=== PATIENT | male | born 1980 | race Caucasian/White ===

== ENCOUNTER 2022-11-18 10:42 | Emergency (ER) | payer OTHER, SELFPAY ==
[2022-11-18 11:14] VITALS: BP 128/75; PULSE 103; RESP 20; TEMP 38.6; O2SAT 97; BMI 27.1
--- NOTE | 2022-11-18 11:49 | CT_ITS ---
WS: [id number] CT FACIAL BONES TECHNIQUE: Contrast-enhanced facial bones with coronal and sagittal reformatted images. CLINICAL INFORMATION: L jaw swelling COMPARISON: None. DLP: 971.[address] scans at [facility] use at least one of these dose optimization techniques: automated e xposure control; mA and/or kV adjustment per patient size (includes targeted exams where dose is matc hed to clinical indication); or iterative reconstruction. FINDINGS: Inflammatory stranding with edema involving the LEFT mandibular soft tissues compatible with cellulit is. Periapical lucency involving the LEFT posterior mandibular molars. Small pocket of air associated low-attenuation fluid about the LEFT mandible suspicious for phlegmon or developing abscess. This me asures approximately 2.2 x 1.0 cm along the lingual cortex. Inflammatory stranding and edema extendin g into the LEFT submandibular space. Thickening of the platysma. Reactive LEFT cervical lymph nodes. Edema extends into the LEFT parapharyngeal space and LEFT pharyngeal soft tissues. Partial effacement of the vallecula and LEFT piriform sinus. Visualized airway appears patent. Maxillary sinusitis RIGHT greater than LEFT. Visualized mastoid air cells well aerated. Roots of tania ral LEFT maxillary molars extend into the LEFT maxillary sinus with periapical cysts. CT/CT facial bones w con [id number] IMPRESSION: 1. Cellulitis involving the LEFT superficial and deep soft tissues with absces s about the lingual cortex LEFT mandible. 2. Infection extends into the LEFT submandibular space with edema in the LEFT vallecula and pharyngeal soft tissues. 3. Associated air with low-attenuation fluid about the LEFT mandible suspiciou s for phlegmon/abscess measuring 2.2 x 1.0 cm along the lingual cortex. Odontog enic origin suspected. 4. Reactive LEFT cervical lymph nodes. 5. RIGHT greater than LEFT maxillary sinusitis. Notified Saige Davies PA-C at 11/18/2022 1:16 PM.
--- NOTE | 2022-11-18 11:51 | W.ED.DENTAL ---
Documented by User: Saieg Davies PA-C 11/18/22 16:39 HPI - Dental/Oral General: Chief complaint: Dental/Oral Stated complaint: tooth abscess Time Seen by Provider: 11/18/22 11:38 Source: patient and family Mode of arrival: wheelchair Limitations: no limitations History of Present Illness: 42-year-old male presents to the ER with significant facial swelling and fever for the last 24 hours. Patient reports he has a tooth with a cavity in the left back however did not start bothering him until yesterday. Patient reports he woke up this morning with significant swelling in the left side of his jaw. Patient is unable to open his mouth fully and has significant swelling under his tongue. Patient reports his pain is a 10 out of 10 at this time. He is only taking [id number] medications for the pain at this time. Patient reports he does not have a dentist right now due to no insurance. Was unaware he had a fever however has reported chills. Patient reports no appetite due to the pain. Review of Systems General: Reports: 10 or more systems reviewed and unremarkable except in HPI and below Physical Exam Const: COMMON NORMALS: average body habitus, patient oriented x3, no limitations, healthy appearing, alert and well nourished; apparent distress (Patient very uncomfortable) HENMT: COMMON NORMALS: normocephalic, atraumatic and Normal nasal mucous membranes and turbinates present; oropharynx not normal, dentition not normal and gingiva not normal HEAD & SCALP: normocephalic and atraumatic NOSE: Normal nasal mucous membranes and turbinates present MOUTH: malodorous breath; salivary glands and ducts not abnormal (Thickened swelling noted of the left salivary gland beneath the tongue) TEETH & GINGIVA: Yes abnormal tooth and associated gingiva (Left lower molar, no fracture noted but swelling around the tooth) lower left second molar TEETH & GINGIVA IMAGES: 1. cavity noted 2. significant swelling of salivary gland Neck/C-Spine: OTHER: Anterior cervical lymphadenopathy noted on the left side of the neck Resp: COMMON NORMALS: normal respiratory effort, No retractions and clear to auscultation bilaterally AUSCULTATION: clear to auscultation bilaterally Cardio: COMMON NORMALS: regular rate, regular rhythm and No murmurs present (Cardio) RATE: regular rate RHYTHM: regular rhythm GI: COMMON NORMALS: Normal to inspection, nondistended, normoactive bowel sounds present and Soft to palpation PALPATION: Yes Soft to palpation Extremity: COMMON NORMALS: normal to inspection and full ROM Neuro: COMMON NORMALS: patient oriented x3 SENSORIUM/ORIENTATION: Yes alert Psych: COMMON NORMALS: mental status grossly normal, Normal thought process present and cooperative THOUGHT PROCESS: Normal thought process present Skin: COMMON NORMALS: no rashes or lesions noted and no wounds GENERAL SKIN EXAM: no rashes or lesions noted Course ED course: Patient presents to the ER today for left molar pain for the last 24 hours. Patient reports yesterday the swelling started and it significantly worsened overnight. Patient reports chills and pain that is a 10 out of 10. Exam patient is noted to have a 101.5 temp and severe swelling of the left side of his face extending under the tongue. Given the significant swelling and patient's pain and the quick onset, I am going to go ahead and CT the facial bones. Patient will be started on IV clindamycin while in the ER today. Patient given Tylenol for pain. He refuses any type of narcotic pain medication. Lab work will also be performed. Reevaluation(s): Reevaluation #1: [facility] ER called back and Dr. Beaulieu accepts patient as a transfer ER to ER. Maxillofacial surgeon was also notified and agreed with treatment plan. Time: 03:15 Reevaluation #2: After recheck of patient, he reports worsening swelling and more difficulty swallowing. Patient's O2 sat remained stable however given the worsening swelling and with [facility] ER physician encouraging airway protection, we will go ahead and intubate patient to preserve the airway. Dr. Kennedy also saw this patient and discussed plan with patient. Patient was in agreement with this plan. Time: 15:29 Reevaluation #3: Anesthesia was consulted for intubation and they feel patient is too difficult of intubation given his current situation. They feel patient is stable enough to be transferred and his airway will be okay until [place]. Time: 16:11 Additional Reevaluation(s): Patient will be flown by [facility]. Still stable but having worsening difficulty swallowing secretions. Vital Signs: Vital signs: Vital Signs Temperature 98.7 F 11/18/22 15:00 Pulse Rate 103 H 11/18/22 18:11 Respiratory Rate 20 H 11/18/22 11:14 Blood Pressure 128/75 11/18/22 18:11 Pulse Oximetry 97 11/18/22 18:11 Oxygen Delivery Me thod Room Air 11/18/22 11:14 MDM - Dental/Oral Medical Decision Making Patient presented for dental pain however on exam patient's swelling was significant. Patient was having trouble speaking and swallowing. Patient was noted to have 13,000 white count and was febrile in the ER. Patient was also tachycardic. CT of the face indicates cellulitis with abscess that is encroaching upon the airway. Patient was noted to have increased difficulty swallowing while in the ER. We did contact [facility] Theodore who contacted their maxillofacial surgeon and recommended transfer ER to ER. Dr. Beaulieu in the ER excepted patient for transfer. She recommended intubation so the patient did not lose airway patency on the way. We consulted with anesthesia here and Dr. Kennedy and anesthesia felt patient was too complicated of case for us to intubate here even electively. Patient is currently stable and satting okay. We will go ahead and get patient to [place] at this time. Patient was given clindamycin and steroids here. Pain is controlled at the moment. Lab Data 11/18/22 12:07 11/18/22 12:[address] 11/18/22 11:49 IMPRESSION: 1. Cellulitis involving the LEFT superficial and deep soft tissues with abscess about the lingual cortex LEFT mandible. 2. Infection extends into the LEFT submandibular space with edema in the LEFT vallecula and pharyngeal soft tissues. 3. Associated air with low-attenuation fluid about the LEFT mandible suspicious for phlegmon/abscess measuring 2.2 x 1.0 cm along the lingual cortex. Odontogenic origin suspected. 4. Reactive LEFT cervical lymph nodes. 5. RIGHT greater than LEFT maxillary sinusitis. Notified Saige Davies PA-C at 11/18/2022 1:16 PM. Laboratory Results WBC 12.9 10^3/uL (4.0-10.0) H 11/18/22 12:07 RBC 5.25 10^6/uL (4.1-5.3) 11/18/22 12:07 Hgb 14.6 g/dL (11.7-16.6) 11/18/22 12:07 Hct 44.8 % (42.0-52.0) 11/18/22 12:07 MCV 85.3 fl (80-94) 11/18/22 12:07 MCH 27.8 pg (28.0-34.0) L 11/18/22 12:07 MCHC 32.6 g/dL (30.0-36.0) 11/18/22 12:07 RDW 12.4 % (12.1-15.1) 11/18/22 12:07 Plt Count 209 10^3/cmm (130-400) 11/18/22 12:07 MPV 8.7 fL (7.4-10.4) 11/18/22 12:07 Neut % (Auto) 84.1 % 11/18/22 12:07 Lymph % (Auto) 6.5 % 11/18/22 12:07 Hodgeman % (Auto) 8.7 % 11/18/22 12:07 Eos % (Auto) 0.0 % 11/18/22 12:07 Baso % (Auto) 0.2 % 11/18/22 12:07 Neut # (Auto) 10.83 10^3/uL (1.8-7.7) H 11/18/22 12:07 Lymph # (Auto) 0.8 10^3/uL (0.8-4.8) 11/18/22 12:07 Hodgeman # (Auto) 1.1 10^3/uL (0.2-0.9) H 11/18/22 12:07 Eos # (Auto) 0.0 10^3/uL (0.0-0.8) 11/18/22 12:07 Baso # (Auto) 0.0 10^3/uL (0.0-0.1) 11/18/22 12:07 Nucleated RBC % (auto) 0 % 11/18/22 12:07 Nucleated RBCs # 0.0 /100WBC 11/18/22 12:07 Sodium 131 mmol/L (136-145) L 11/18/22 12:07 Potassium 4.0 mmol/L (3.5-5.1) 11/18/22 12:07 Chloride 94 mmol/L (98-107) L 11/18/22 12:07 Carbon Dioxide 23 mmol/L (22-29) 11/18/22 12:07 Anion Gap 18.0 (5-19) 11/18/22 12:07 BUN 11 mg/dL (6-20) 11/18/22 12:07 Creatinine 0.6 mg/dL (0.7-1.2) L 11/18/22 12:07 GFR Calculation 147.8 mL/min (90-130) H 11/18/22 12:07 Glucose 114 mg/dL (65-115) 11/18/22 12:07 Calculated Osmolality 272 mOsm/kg (285-295) L 11/18/22 12:07 Calcium 8.8 mg/dL (8.5-10.5) 11/18/22 12:07 Total Bilirubin 1.1 mg/dL (0.15-1.2) 11/18/22 12:07 AST 19 U/L (0-40) 11/18/22 12:07 ALT 51 U/L (0-41) H 11/18/22 12:07 Alkaline Phosphatase 98 U/L (40-130) 11/18/22 12:07 Total Protein 7.7 g/dL (6.6-8.7) 11/18/22 12:07 Albumin 4.2 g/dL (3.5-5.2) 11/18/22 12:07 Globulin 3.5 g/dL (1.3-4.6) 11/18/22 12:07 Critical Care Time Critical Care Time: Critical Care Time: No Discharge Plan Discharge Patient Disposition: Transfer to ED Clinical Impression: Cellulitis and abscess of face Condition: Stable Prescriptions: No Action multivitamin Tablet 1 tab PO DAILY magnesium oxide 420 mg Tablet 420 mg PO DAILY Aleve 220 mg Tablet 440 mg PO Q12H PRN (Reason: Pain) Prilosec OTC 20 mg Tablet,Delayed Release (Dr/Ec) 20 mg PO DAILY Discharge Orders: Transfer Out of Facility (Order); Ordered 11/18/22 Ordered By: Saige Davies Activity Restrictions/Additional Instructions: Pt transferred to [facility] ER. Coding Level of Care Code ED Punch Machine Hand for Alexandre Orr Documented by User: Lexa Mccloud DO 11/28/22 07:33 HPI - Dental/Oral General: Chief complaint: Dental/Oral Stated complaint: tooth abscess Time Seen by Provider: 11/18/22 11:38 Physical Exam HENMT: TEETH & GINGIVA IMAGES: 1. cavity noted 2. significant swelling of salivary gland Course Vital Signs: Vital signs: Vital Signs Temperature 98.7 F 11/18/22 15:00 Pulse Rate 103 H 11/18/22 18:11 Respiratory Rate 20 H 11/18/22 11:14 Blood Pressure 128/75 11/18/22 18:11 Pulse Oximetry 97 11/18/22 18:11 Oxygen Delivery Me thod Room Air 11/18/22 11:14 MDM - Dental/Oral Medical Decision Making Patient presented for dental pain however on exam patient's swelling was significant. Patient was having trouble speaking and swallowing. Patient was noted to have 13,000 white count and was febrile in the ER. Patient was also tachycardic. CT of the face indicates cellulitis with abscess that is encroaching upon the airway. Patient was noted to have increased difficulty swallowing while in the ER. We did contact [facility] Theodore who contacted their maxillofacial surgeon and recommended transfer ER to ER. Dr. Beaulieu in the ER excepted patient for transfer. She recommended intubation so the patient did not lose airway patency on the way. We consulted with anesthesia here and Dr. Kennedy and anesthesia felt patient was too complicated of case for us to intubate here even electively. Patient is currently stable and satting okay. We will go ahead and get patient to [place] at this time. Patient was given clindamycin and steroids here. Pain is controlled at the moment. Chart reviewed and patient discussed with midlevel. Agree with assessment and plan. Lab Data 11/18/22 12:07 11/18/22 12:[address] 11/18/22 11:49 IMPRESSION: 1. Cellulitis involving the LEFT superficial and deep soft tissues with abscess about the lingual cortex LEFT mandible. 2. Infection extends into the LEFT submandibular space with edema in the LEFT vallecula and pharyngeal soft tissues. 3. Associated air with low-attenuation fluid about the LEFT mandible suspicious for phlegmon/abscess measuring 2.2 x 1.0 cm along the lingual cortex. Odontogenic origin suspected. 4. Reactive LEFT cervical lymph nodes. 5. RIGHT greater than LEFT maxillary sinusitis. Notified Saige Davies PA-C at 11/18/2022 1:16 PM. Laboratory Results WBC 12.9 10^3/uL (4.0-10.0) H 11/18/22 12:07 RBC 5.25 10^6/uL (4.1-5.3) 11/18/22 12:07 Hgb 14.6 g/dL (11.7-16.6) 11/18/22 12:07 Hct 44.8 % (42.0-52.0) 11/18/22 12:07 MCV 85.3 fl (80-94) 11/18/22 12:07 MCH 27.8 pg (28.0-34.0) L 11/18/22 12:07 MCHC 32.6 g/dL (30.0-36.0) 11/18/22 12:07 RDW 12.4 % (12.1-15.1) 11/18/22 12:07 Plt Count 209 10^3/cmm (130-400) 11/18/22 12:07 MPV 8.7 fL (7.4-10.4) 11/18/22 12:07 Neut % (Auto) 84.1 % 11/18/22 12:07 Lymph % (Auto) 6.5 % 11/18/22 12:07 Hodgeman % (Auto) 8.7 % 11/18/22 12:07 Eos % (Auto) 0.0 % 11/18/22 12:07 Baso % (Auto) 0.2 % 11/18/22 12:07 Neut # (Auto) 10.83 10^3/uL (1.8-7.7) H 11/18/22 12:07 Lymph # (Auto) 0.8 10^3/uL (0.8-4.8) 11/18/22 12:07 Hodgeman # (Auto) 1.1 10^3/uL (0.2-0.9) H 11/18/22 12:07 Eos # (Auto) 0.0 10^3/uL (0.0-0.8) 11/18/22 12:07 Baso # (Auto) 0.0 10^3/uL (0.0-0.1) 11/18/22 12:07 Nucleated RBC % (auto) 0 % 11/18/22 12:07 Nucleated RBCs # 0.0 /100WBC 11/18/22 12:07 Sodium 131 mmol/L (136-145) L 11/18/22 12:07 Potassium 4.0 mmol/L (3.5-5.1) 11/18/22 12:07 Chloride 94 mmol/L (98-107) L 11/18/22 12:07 Carbon Dioxide 23 mmol/L (22-29) 11/18/22 12:07 Anion Gap 18.0 (5-19) 11/18/22 12:07 BUN 11 mg/dL (6-20) 11/18/22 12:07 Creatinine 0.6 mg/dL (0.7-1.2) L 11/18/22 12:07 GFR Calculation 147.8 mL/min (90-130) H 11/18/22 12:07 Glucose 114 mg/dL (65-115) 11/18/22 12:07 Calculated Osmolality 272 mOsm/kg (285-295) L 11/18/22 12:07 Calcium 8.8 mg/dL (8.5-10.5) 11/18/22 12:07 Total Bilirubin 1.1 mg/dL (0.15-1.2) 11/18/22 12:07 AST 19 U/L (0-40) 11/18/22 12:07 ALT 51 U/L (0-41) H 11/18/22 12:07 Alkaline Phosphatase 98 U/L (40-130) 11/18/22 12:07 Total Protein 7.7 g/dL (6.6-8.7) 11/18/22 12:07 Albumin 4.2 g/dL (3.5-5.2) 11/18/22 12:07 Globulin 3.5 g/dL (1.3-4.6) 11/18/22 12:07 Discharge Plan Discharge Patient Disposition: Transfer to ED Clinical Impression: Cellulitis and abscess of face Condition: Stable Prescriptions: No Action multivitamin Tablet 1 tab PO DAILY magnesium oxide 420 mg Tablet 420 mg PO DAILY Aleve 220 mg Tablet 440 mg PO Q12H PRN (Reason: Pain) Prilosec OTC 20 mg Tablet,Delayed Release (Dr/Ec) 20 mg PO DAILY Discharge Orders: Transfer Out of Facility (Order); Ordered 11/18/22 Ordered By: Saige Davies Activity Restrictions/Additional Instructions: Pt transferred to [facility] ER. Coding Level of Care Code ED Punch Machine Hand for Alexandre Orr
[2022-11-18] MEDS: acetaminophen 500 mg Tablet 1000 MG PO (12:02)
[2022-11-18] MEDS: clindamycin 600 MG/50 ML PREMIX 100 MG IV (12:04)
[2022-11-18 12:18] LABS: Basophils % 0.2 %; Hematocrit 44.8 % (42.0-52.0); Hemoglobin 14.6 g/dL (11.7-16.6); Lymphocytes # 0.8 10^3/uL (0.8-4.8); Lymphocytes % 6.5 %; Mean Corpuscular HGB Conc 32.6 g/dL (30.0-36.0); Mean Corpuscular Hemoglobin 27.8 pg (28.0-34.0); Mean Corpuscular Volume 85.3 fl (80-94); Mean Platelet Volume 8.7 fL (7.4-10.4); Monocytes # 1.1 10^3/uL (0.2-0.9); Monocytes % 8.7 %; Neutrophils # 10.83 10^3/uL (1.8-7.7); Neutrophils % 84.1 %; Nucleated Red Blood Cells % 0 %; Platelet Count 209 10^3/cmm (130-400); Red Blood Count 5.25 10^6/uL (4.1-5.3); Red Cell Distribution Width 12.4 % (12.1-15.1); White Blood Count 12.9 10^3/uL (4.0-10.0)
[2022-11-18] MEDS: iohexol 350 mg/mL 500 mL Btl (per mL) IV (12:38)
[2022-11-18 12:44] LABS: Alanine Aminotransferase 51 U/L (0-41); Albumin Level 4.2 g/dL (3.5-5.2); Alkaline Phosphatase 98 U/L (40-130); Aspartate Amino Transferase 19 U/L (0-40); Blood Urea Nitrogen 11 mg/dL (6-20); Calcium 8.8 mg/dL (8.5-10.5); Carbon Dioxide 23 mmol/L (22-29); Chloride 94 mmol/L (98-107); Globulin 3.5 g/dL (1.3-4.6); Glomerular Filtration Rate 147.8 mL/min (90-130); Glucose 114 mg/dL (65-115); Osmolality Calculated 272 mOsm/kg (285-295); Sodium 131 mmol/L (136-145); Total Bilirubin 1.1 mg/dL (0.15-1.2); Total Protein 7.7 g/dL (6.6-8.7)
[2022-11-18] MEDS: sodium chloride 0.9% 1,000 ML 999 ML IV ×2 (13:14→16:14)
[2022-11-18 15:00] VITALS: TEMP 37.1
[2022-11-18] MEDS: dexamethasone 10 mg/mL INJ IVP (16:13)
--- NOTE | 2022-11-18 16:17 | PM.MISC ---
Miscellaneous Note Purpose of Documentation: Evaluatioin of airway Note: 42 y.o. male with oral abscess, asked to evaluate for intubation prior to transfer for definitive care. Patient in no distress, no stridor, handling secretions without difficulty but very limited mouth opening, obvious swollen structures in airway--patient appears very stable for transport to accepting facility. Discussed with ED physician who agrees.
[2022-11-18 18:11] VITALS: BP 128/75; PULSE 103; O2SAT 97
--- NOTE | 2022-11-24 15:53 | DCPLANNER ---
industrial hygiene manager called patient due to no primary care physician - no answer at this time.
== END 2022-11-18 18:13 ==
PROVIDERS: Emergency Provider Physician Assistant
DX: L03.211 Cellulitis of face (principal); L02.01 Cutaneous abscess of face
CPT/HCPCS: 70487; 80053; 85025; 96361; 96365; 96375; 99285; J1100; J3490; J7030; Q9967

== ENCOUNTER 2024-02-02 09:25 | Emergency (ER) | payer OTHER, SELFPAY ==
--- NOTE | 2024-02-02 09:31 | ECG_ITS ---
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 Measurements Intervals [place] Rate: 69 P: 49 IN: 129 QRS: 31 QRSD: 98 T: 50 QT: 361 QTc: 387 Interpretive Statements SINUS RHYTHM No previous ECG available for comparison Electronically Signed On 02-02-2024 11:50:52 CDT by Jacinto Bailey M.D. [email or web address]
[2024-02-02 09:54] VITALS: BP 158/99; PULSE 70; RESP 18; TEMP 36.6; O2SAT 100; BMI 27.1
--- NOTE | 2024-02-02 10:13 | XRR_ITS ---
PROCEDURE INFORMATION: Exam: XR Chest Exam date and time: 02/02/2024 10:26 AM Age: 43 years old Clinical indication: Pain; Angina pectoris; Chest pain TECHNIQUE: Imaging protocol: Radiologic exam of the chest. Views: 1 view. COMPARISON: No relevant prior studies available. FINDINGS: Lungs: No pulmonary vascular congestion, pulmonary edema or pneumonia. Pleural spaces: No pleural effusion or pneumothorax. Heart/Mediastinum: The cardiac silhouette is not enlarged. The mediastinal contours are normal. Bones/joints: No acute osseous abnormality. XR/XR chest 1V portable [id number] IMPRESSION: No acute finding.
[2024-02-02 10:24] LABS: Basophils % 0.5 %; Eosinophils # 0.2 10^3/uL (0.0-0.8); Eosinophils % 2.9 %; Hematocrit 41.5 % (37-53); Lymphocytes # 1.6 10^3/uL (0.8-4.8); Lymphocytes % 25.2 %; Mean Corpuscular HGB Conc 34.7 g/dL (30-55); Mean Corpuscular Hemoglobin 29.6 pg (27-33); Mean Corpuscular Volume 85.4 fl (82-101); Mean Platelet Volume 8.6 fL (7.4-10.4); Monocytes # 0.5 10^3/uL (0.2-0.9); Monocytes % 8.6 %; Neutrophils # 3.87 10^3/uL (1.8-7.7); Neutrophils % 62.5 %; Nucleated Red Blood Cells % 0 %; Platelet Count 223 10^3/cmm (157-399); Red Blood Count 4.86 10^6/uL (3.85-5.65); Red Cell Distribution Width 11.9 % (12.1-15.1); White Blood Count 6.19 10^3/uL (3.29-11.43)
--- NOTE | 2024-02-02 10:38 | ED_ITS ---
HPI - Chest Pain 2 General: Chief Complaint: Chest Pain Stated Complaint: cp and high bp Time Seen by Provider: 02/02/24 10:12 History of Present Illness: 43-year-old male presents emergency room with complaint of high blood pressure and chest discomfort. He is also a little bit of blurry vision. He reported a blood pressure this morning 161/118 with some chest tightness and pressure central substernal. He has intermittently had palpitations and rapid heart rate in the past he has not had a specific diagnosis made he said they have evaluated multiple times. He is not on anything for blood pressure or rate control. No known history of any arrhythmias. No known history of any previous cardiac disease patient does smoke regularly. Not diabetic. Associated symptoms: Deny abdominal pain, dyspnea or fever(s) Review of Systems 2 Const: Denies: fever(s) or chills Card: Denies: chest pain Resp: Denies: dyspnea GI: Denies: abdominal pain : Denies: dysuria, urinary frequency or urinary urgency Musc: Denies: neck pain or back pain Skin/Breast: Denies: rash Physical Exam 2 Const: COMMON NORMALS: no acute distress GENERAL APPEARANCE: cooperative and comfortable ORIENTATION/CONSCIOUSNESS: Yes awake, Yes oriented to person, Yes oriented to place and Yes oriented to time HENMT: COMMON NORMALS: normocephalic, atraumatic and hearing grossly normal bilaterally HEAD & SCALP: normocephalic and atraumatic Resp: COMMON NORMALS: normal respiratory effort, No retractions, No use of accessory muscles and clear to auscultation bilaterally AUSCULTATION: clear to auscultation bilaterally Cardio: COMMON NORMALS: regular rate, regular rhythm and No murmurs present (Cardio) RATE: regular rate RHYTHM: regular rhythm GI: COMMON NORMALS: Soft to palpation and No hepatosplenomegaly present A USCULTATION: Yes normoactive bowel sounds PALPATION: Yes Soft to palpation, No Tenderness to palpation present (GI), No Guarding due to palpation present (GI) and Yes No hepatosplenomegaly present Extremity: COMMON NORMALS: normal to inspection, capillary refill normal, no clubbing, cyanosis or edema, no calf tenderness and no pedal edema Neuro: SENSORIUM/ORIENTATION: Yes oriented to person, Yes oriented to place and Yes oriented to time Skin: COMMON NORMALS: no rashes or lesions noted GENERAL SKIN EXAM: no rashes or lesions noted Course 2 Vital Signs: Vital signs: Vital Signs Temperature 97.9 F 02/02/24 09:54 Pulse Rate 68 02/02/24 12:00 Respiratory Rate 16 02/02/24 12:00 Blood Pressure 153/99 02/02/24 12:00 Pulse Oximetry 100 02/02/24 12:00 Oxygen Delivery Me thod Room Air 02/02/24 09:54 MDM - Chest Pain Medical Decision Making Labs and imaging reviewed no acute ST changes. No signs of acute coronary syndrome. She does have an elevated blood pressure. Discharge patient home on aspirin daily. Blood pressure did improve after this year for a time follow-up with primary care also set up for outpatient stress testing. Return if has further problems. Medical Records I reviewed the patient's medical records. Lab Data I reviewed the patient's lab results. 02/02/24 10:20 02/02/24 10:20 Radiology Impressions Chest X-Ray 02/02/24 10:13 IMPRESSION: No acute finding. Laboratory Results WBC 6.19 10^3/uL (3.29-11.43) 02/02/24 10:20 RBC 4.86 10^6/uL (3.85-5.65) 02/02/24 10:20 Hgb 14.40 g/dL (11.27-16.99) 02/02/24 10:20 Hct 41.5 % (37-53) 02/02/24 10:20 MCV 85.4 fl (82-101) 02/02/24 10:20 MCH 29.6 pg (27-33) 02/02/24 10:20 MCHC 34.7 g/dL (30-55) 02/02/24 10:20 RDW 11.9 % (12.1-15.1) L 02/02/24 10:20 Plt Count 223 10^3/cmm (157-399) 02/02/24 10:20 MPV 8.6 fL (7.4-10.4) 02/02/24 10:20 Neut % (Auto) 62.5 % 02/02/24 10:20 Lymph % (Auto) 25.2 % 02/02/24 10:20 [place] % (Auto) 8.6 % 02/02/24 10:20 Eos % (Auto) 2.9 % 02/02/24 10:20 Baso % (Auto) 0.5 % 02/02/24 10:20 Neut # (Auto) 3.87 10^3/uL (1.8-7.7) 02/02/24 10:20 Lymph # (Auto) 1.6 10^3/uL (0.8-4.8) 02/02/24 10:20 [place] # (Auto) 0.5 10^3/uL (0.2-0.9) 02/02/24 10:20 Eos # (Auto) 0.2 10^3/uL (0.0-0.8) 02/02/24 10:20 Baso # (Auto) 0.0 10^3/uL (0.0-0.1) 02/02/24 10:20 Nucleated RBC % (auto) 0 % 02/02/24 10:20 Nucleated RBCs # 0.0 /100WBC 02/02/24 10:20 Sodium 136 mmol/L (136-145) 02/02/24 10:20 Potassium 3.8 mmol/L (3.5-5.1) 02/02/24 10:20 Chloride 101 mmol/L (98-107) 02/02/24 10:20 Carbon Dioxide 24 mmol/L (22-29) 02/02/24 10:20 Anion Gap 14.8 (5-19) 02/02/24 10:20 BUN 13 mg/dL (6-20) 02/02/24 10:20 Creatinine 0.8 mg/dL (0.7-1.2) 02/02/24 10:20 GFR Calculation 105.5 mL/min (90-130) 02/02/24 10:20 Glucose 106 mg/dL (65-115) 02/02/24 10:20 Calculated Osmolality 283 mOsm/kg (285-295) L 02/02/24 10:20 Calcium 8.8 mg/dL (8.5-10.5) 02/02/24 10:20 Total Bilirubin 0.4 mg/dL (0.15-1.2) 02/02/24 10:20 AST 17 U/L (0-40) 02/02/24 10:20 ALT 27 U/L (0-41) 02/02/24 10:20 Alkaline Phosphatase 96 U/L (40-130) 02/02/24 10:20 Troponin T Baseline < 6 ng/L (0-15) 02/02/24 10:20 Troponin T 120 Minute 6.00 ng/L (0-15) 02/02/24 12:16 Delta Troponin T 0.65466 ABS# (0-10) 02/02/24 12:16 Total Protein 7.1 g/dL (6.6-8.7) 02/02/24 10:20 Albumin 4.4 g/dL (3.5-5.2) 02/02/24 10:20 Globulin 2.7 g/dL (1.3-4.6) 02/02/24 10:20 All radiology interpretation(s) finalized by discharge EKG Data EKG 1: Interpretation: EKG 02/02/2024 0 931 normal sinus rhythm no acute ST changes noted. Rate o 69 with a WA interval of 129 QT normal f EKG 2: Interpretation: EKG shows normal sinus rhythm no acute ST changes noted rate of 68 WA interval of 145. Discharge Plan Discharge Patient Disposition: Home Clinical Impression: Atypical chest pain, Elevated blood pressure reading Condition: Stable Prescriptions: New aspirin 81 mg tablet,delayed release (DR/EC) 81 mg PO DAILY Qty: 30 0RF No Action multivitamin Tablet 1 tab PO DAILY magnesium oxide 420 mg Tablet 420 mg PO DAILY naproxen sodium [Aleve] 220 mg Tablet 440 mg PO Q12H PRN (Reason: Pain) omeprazole magnesium [Prilosec OTC] 20 mg Tablet,Delayed Release (Dr/Ec) 20 mg PO DAILY Discharge Orders: Discharge ED (Routine); Ordered 02/02/24 Ordered By: Lexa Mccloud Discharge Diet: Usual diet Discharge Activity: Resume usual activity Patient Instructions: Opioid Safety, Pain Management Activity Restrictions/Additional Instructions: Thank you for choosing [facility] for your healthcare needs today. It is very important that you follow up as instructed or that you return to the Emergency Department should you have concerns or if your condition changes or worsens in any way. You were seen for chest discomfort and elevated blood pressure. Your blood pressure normalized while you are in the emergency room without intervention. Her cardiac enzymes EKG did not show any acute changes. Case management make arrangements for rehab and outpatient graded exercise stress test. Coding Level of Care Code ED Manager Corporate for Chg Fwd
[2024-02-02 10:50] LABS: Troponin(5th) Baseline < 6 ng/L (0-15)
[2024-02-02 10:52] LABS: Alanine Aminotransferase 27 U/L (0-41); Albumin Level 4.4 g/dL (3.5-5.2); Alkaline Phosphatase 96 U/L (40-130); Anion Gap 14.8 (5-19); Aspartate Amino Transferase 17 U/L (0-40); Blood Urea Nitrogen 13 mg/dL (6-20); Calcium 8.8 mg/dL (8.5-10.5); Carbon Dioxide 24 mmol/L (22-29); Chloride 101 mmol/L (98-107); Globulin 2.7 g/dL (1.3-4.6); Glomerular Filtration Rate 105.5 mL/min (90-130); Glucose 106 mg/dL (65-115); Osmolality Calculated 283 mOsm/kg (285-295); Potassium 3.8 mmol/L (3.5-5.1); Sodium 136 mmol/L (136-145); Total Bilirubin 0.4 mg/dL (0.15-1.2); Total Protein 7.1 g/dL (6.6-8.7)
[2024-02-02] MEDS: aspirin 81 mg Chew Tablet 324 MG PO (11:22)
[2024-02-02 12:00] VITALS: BP 153/99; PULSE 68; RESP 16; O2SAT 100
--- NOTE | 2024-02-02 12:13 | ECG_ITS ---
[facility] Test Date: 2024-02-02 Pat Name: Humberto Hayes Department: Room: Gender: Male Sal[employer] Professional: : 1980 Requested By: Lexa Zapata Order Number: [id number] Lucie MD: Jacinto Bailey M.D. Measurements Intervals [place] Rate: 68 P: 55 IA: 145 QRS: 31 QRSD: 125 T: 51 QT: 369 QTc: 393 Interpretive Statements SINUS RHYTHM MODERATE INTRAVENTRICULAR CONDUCTION DELAY [110+ ms QRS DURATION] Compared to ECG 02/02/2024 09:31:04 Intraventricular conduction delay now present Electronically Signed On 02-02-2024 13:26:10 CDT by Jacinto Bailey M.D. [id number]
[2024-02-02 12:38] LABS: Troponin 5 2HR Delta 0.00001 ABS# (0-10)
== END 2024-02-02 14:24 | disposition home or self-care (01) ==
PROVIDERS: Emergency Provider Family Medicine
DX: R07.89 Other chest pain (principal); R03.0 Elevated blood-pressure reading, without diagnosis of hypertension
CPT/HCPCS: 36415; 71045; 80053; 84484; 85025; 93005; 99285

== ENCOUNTER 2024-02-28 12:25 | Outpatient (CLI) | payer OTHER, SELFPAY ==
--- NOTE | 2024-02-28 12:31 | ECG_ITS ---
[facility] Test Date: 2024-02-28 Pat Name: Humberto Hayes Department: Room: Gender: Male Director Of Epidemiology: Jeremiah Ventura : 1980 Requested By: Lexa Zapata Order Number: [id number] Faulkner MD: Jacinto Bailey M.D. Interpretive Statements NAME OF STUDY: TREADMILL STRESS TEST INDICATION: [Atypical Chest Pain, ] EXERCISE DATA: The patient was exercised by Dante protocol. Baseline heart rate was 78 beats per minute. Baseline blood pressure was 130/68 millimeters of mercury. Maximal predicted heart rate was 177 beats per minute. Maximum heart rate achieved was 125, which was 70% of the maximum predicted heart rate. Maximum blood pressure was 148/75 millimeters of mercury. Total exercise time was 8 minutes 32 seconds. Maximum METs achieved was 10.2. The reason for ending the test was patient became symptomatic with dizziness and chest pressure. ELECTROCARDIOGRAM: BASELINE: Showed sinus rhythm, normal axis, no significant ST-T changes at the baseline noted. [] EXERCISE: At the peak exercise level, [] non specific ST T wave changes are seen. RECOVERY: During the recovery period, heart rate dropped appropriately. No significant ST-T changes in the recovery suggestive of ischemia noted. [] CONCLUSION: 1. Exercise capacity is fair 2. Heart rate response was suboptimal 3. Blood pressure response was appropriate 4. Symptoms of chest pressure. 5. Stress test is non-diagnostic as patient did not reach target heart rate. Recommend stress testing with imaging modality to further assess for ischemia. Electronically Signed On 03-04-2024 8:44:45 CDT by Jacinto Bailey M.D. [id number]
[2024-02-28 12:40] VITALS: BMI 26.6
[2024-02-28 13:15] VITALS: BP 148/75; PULSE 100
== END 2024-02-28 12:26 | disposition home or self-care (01) ==
PROVIDERS: Visit Provider Family Medicine
DX: R07.89 Other chest pain (principal); R94.39 Abnormal result of other cardiovascular function study
CPT/HCPCS: 93017